=== PATIENT | male | born 1990 | race Caucasian/White ===

== ENCOUNTER 2017-07-23 18:44 | Emergency (ER) | payer OTHER ==
[~2017-07-23] VITALS: Ht 165.1 cm; Wt 59.1 kg
[2017-07-23 19:46] VITALS: BP 134/84
== END 2017-07-23 19:46 | disposition home or self-care (01) ==
LOC: ED 18:44
DX: M54.5 Low back pain (principal); V43.52XA Car driver injured in collision with other type car in traffic accident, initial encounter; Y92.410 Unspecified street and highway as the place of occurrence of the external cause; F17.200 Nicotine dependence, unspecified, uncomplicated
CPT/HCPCS: J1885